=== PATIENT | female | born 2005 | race Caucasian/White ===

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

== ENCOUNTER 2024-03-15 15:42 | Emergency (ER) | payer OTHER, SELFPAY ==
--- NOTE | ~2024-03-15 | US_ITS ---
EXAMINATION: US OBSTETRICAL ULTRASOUND CLINICAL INFORMATION: Lower abdominal pain, nausea and syncope COMPARISON: Pelvic ultrasound 10/08/2023 LMP: 02/14/2024. Gestational age by maternal dates is 4 weeks 2 days. Estimated date of delivery by maternal dates was not calculated TECHNIQUE: Ultrasound of the maternal pelvis is performed using transabdominal and transvaginal transducers. Transvaginal imaging is performed due to inadequate visualization transabdominally. M-mode Doppler is also performed. FINDINGS: A tiny gestational sac is seen in the endometrial canal but no pole or yolk sac is seen. No cardiac activity detected. The endometrium is 1.9 cm thick. The right ovary measures 2.3 x 1.7 x 2.8 cm which includes a 1.4 cm corpus luteal cyst. The left ovary measures 2.3 x 2.2 x 2.1 cm. 2 adjacent cystic areas are seen in the left adnexa measuring 1.1 x 0.7 x 1.1 cm and 0.6 x 0.5 x 0.8 cm. No free pelvic fluid US/US OB pelvic and transvaginal IMPRESSION: A gestational sac is present without a pole. Correlation with beta hCG levels is recommended, as nonvisualization of a pole could be due to an early stage of . Alternatively, lack of pole may also be seen with missed or ectopic . 2 cystic areas are seen in the left adnexa which do not appear to contain a pole. Short-term sonographic follow-up and serial beta hCG levels are recommended to assess for development of a pole.
[2024-03-15 16:13] VITALS: BP 112/67; PULSE 105; RESP 14; TEMP 36.8; O2SAT 100; BMI 17.7
--- NOTE | 2024-03-15 16:13 | ED_ITS ---
HPI - General Adult General Chief complaint: Syncope Stated complaint: dizziness/vomiting/passed out History of Present Illness HPI narrative: left without completing treatment Related Data Previous Rx's ?Medication ?Instructions ?Recorded albuterol sulfate 90 mcg/actuation 2 puff inhalation Q4-6H PRN 08/26/20 aerosol inhaler shortness of breath or wheezing #8.5 grams calcium carbonate 600 mg-vitamin 1 cap PO DAILY #90 caps 10/01/22 D3 62.5 mcg (2,500 unit) capsule ibuprofen 600 mg tablet 600 mg PO Q6-8H PRN migraine 07/23/23 headache #30 tabs progesterone micronized 200 mg 200 mg PO BEDTIME 10 days #30 caps 02/06/24 capsule (Prometrium) vitamin with calcium 1 tab PO DAILY 90 days #90 tabs 03/18/24 no.72-iron 27 mg-folic acid 1 mg tablet ( Vitamins Plus Low Iron) Allergies Allergy/AdvReac Type Severity Reaction Status Date / Time No Known Allergies Allergy Verified 03/15/24 16:16 [No Known Allergies*] FOR[facility]LY [facility] Past Medical History Medical History Anemia Myalgia Anxiety Mild intermittent asthma ADHD (attention deficit hyperactivity disorder), combined type Migraines Esophagitis Surgical History No pertinent past surgical history Family History Family History Mother GERD (gastroesophageal reflux disease) HTN (hypertension) Father No problems noted. Sister Asthma Maternal Grandmother HTN (hypertension) Social History Social History Household Members: Family Housing: Apartment Alcohol intake: never Patient Tobacco Use Status: Never used Tobacco Current occupational status: employed Current occupation: [employer] Sexual orientation: Straight/Heterosexual Gender identity: Female Cognitive needs: No Hearing needs: No Vision needs: Yes (See's Eye ) Physical Exam ED Vital Signs: BMI result Body Mass Index 17.7 Course Course Course Narrative: This is an RME performed by Johnna Izaguirre CNP: Additional HPI, ROS, PE not included below will be deferred to primary provider. Patient is a 18 year old female who presents to the emergency department for evaluation. 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 reports LMP January Plan: Labs, urinalysis, urine , EKG Medical Decision Making Lab Data 03/15/24 16:45 03/15/24 16:45 Labs: Lab Results 03/15/24 Range/Units 16:45 WBC 6.0 (4.8-10.8) X10*3/uL RBC 4.42 (4.20-5.50) X10*6/uL Hgb 12.8 (12.0-16.0) g/dl Hct 39.4 (37.0-47.0) % MCV 89.1 (80.0-98.0) fL MCH 29.0 (27.0-33.0) pg MCHC 32.5 (31.0-35.0) g/dl RDW 13.3 (11.0-16.0) % Plt Count 179 (160-400) X10*3/uL MPV 12.7 H (9.4-12.3) fL Immature Gran % (Auto) 0.3 (0.0-0.4) % Neut % (Auto) 63.4 (45-73) % Lymph % (Auto) 29.6 (20-40) % [place] % (Auto) 5.7 (2-11) % Eos % (Auto) 0.7 (0-4) % Baso % (Auto) 0.3 (0-2) % Lymph # (Auto) 1.8 (1.2-4.9) X10*3/uL [place] # (Auto) 0.3 (0.1-1.2) X10*3/uL Eos # (Auto) 0.0 (0.0-0.4) X10*3/uL Baso # (Auto) 0.0 (0.0-0.2) X10*3/uL Abs Immat Gran (auto) 0.02 (0.00-0.03) X10*3/uL Absolute Neuts (auto) 3.8 (2.0-8.3) x10*3/uL Absolute Nucleated RBC 0.000 (0.0-0.012) X10*3/uL Nucleated RBC % (auto) 0.0 (0.0-0.2) /100WBC Sodium 139 (135-145) mmol/L Potassium 4.0 (3.3-5.1) mmol/L Chloride 108 (96-108) mmol/L Carbon Dioxide 20 L (22-29) mmol/L Anion Gap 15 (12-20) BUN 14 (9-16) mg/dL Creatinine 0.70 (0.5-1.4) mg/dL Estim Creat Clear Calc 107.5 Estimated GFR > 60 Random Glucose 74 (60-115) mg/dL Calcium 9.7 (8.4-10.2) mg/dL Magnesium 2.1 (1.6-2.6) mg/dL Total Bilirubin 1.2 H (0.0-1.0) mg/dL AST 24 (5-31) U/L ALT 34 H (0-31) U/L Alkaline Phosphatase 53 (39-117) U/L Troponin I High Sens < 2.7 (<3.5-17.0) ng/L Total Protein 7.8 (6.5-8.0) g/dL Albumin 4.6 (3.5-5.0) g/dL Lipase 83 H (8-78) U/L Beta HCG, Quant 89 mIU/mL Urine Color Yellow Urine Appearance Clear Urine pH 6.0 (5.0-9.0) Ur Specific [place] 1.010 (1.005-1.025) Urine Protein Negative (Neg-Trace) mg/dL Urine Glucose (UA) Negative (Negative) mg/dL Urine Ketones Negative (Negative) mg/dL Urine Blood Negative (Negative) Urine Nitrite Negative (Negative) Ur Leukocyte Esterase Negative (Negative) Discharge Plan Discharge Clinical Impression: Vasovagal syncope Patient Disposition: Left W/O Completing Treatment Prescriptions: No Action calcium carbonate-vitamin D3 600 mg-62.5 mcg (2,500 unit) capsule 1 cap PO DAILY Qty: 90 3RF ibuprofen 600 mg tablet 600 mg PO Q6-8H PRN (Reason: migraine headache) Qty: 30 0RF progesterone micronized [Prometrium] 200 mg capsule 200 mg PO BEDTIME 10 Days Qty: 30 0RF Rx Instructions: Take the pill 1 tablet a day cyclically every month from day 15-24 day 1 being the 1st day of next menstrual cycle Vitamin Plus Low Iron 27 mg iron- 1 mg tablet 1 tab PO DAILY 90 Days Qty: 90 3RF albuterol sulfate 90 mcg/actuation HFA aerosol inhaler 2 puff inhalation Q4-6H PRN (Reason: shortness of breath or wheezing) Qty: 8.5 0RF Rx Instructions: take 2 puffs 15-20 min prior to exertion Interventions: CHANCE Worksheet Last Done: 03/15/24 22:31 Discharge Date/Time: 03/15/24 22:32
--- NOTE | 2024-03-15 16:16 | ECG_ITS ---
Test Reason : SYNCOPE Blood Pressure : / mmHG Vent. Rate : 095 BPM Atrial Rate : 095 BPM P-R Int : 132 ms QRS Dur : 082 ms QT Int : 352 ms P-R-T Axes : 077 027 -15 degrees QTc Int : 442 ms Normal sinus rhythm with sinus arrhythmia Low voltage QRS Cannot rule out Anterior infarct , age undetermined T wave abnormality, consider inferior ischemia Abnormal ECG No previous ECGs available Referred By: Betsy Izaguirre Electronically Signed By:Mik Ferrari
[2024-03-15 16:51] LABS: MANUAL DIFF FLAG NO
[2024-03-15 16:54] LABS: Basophils Percent Auto 0.3 % (0-2); Eosinophils Percent Auto 0.7 % (0-4); Hematocrit 39.4 % (37.0-47.0); Hemoglobin 12.8 g/dl (12.0-16.0); Imm Gran Abs Auto 0.02 X10*3/uL (0.00-0.03); Imm Gran Pct Auto 0.3 % (0.0-0.4); Lymphocytes Absolute Auto 1.8 X10*3/uL (1.2-4.9); Lymphocytes Percent Auto 29.6 % (20-40); Mean Corpuscular HGB Conc 32.5 g/dl (31.0-35.0); Mean Corpuscular Volume 89.1 fL (80.0-98.0); Mean Platelet Volume 12.7 fL (9.4-12.3); Monocytes Absolute Auto 0.3 X10*3/uL (0.1-1.2); Monocytes Percent Auto 5.7 % (2-11); Neutrophils Absolute Auto 3.8 x10*3/uL (2.0-8.3); Neutrophils Percent Auto 63.4 % (45-73); Platelet Count 179 X10*3/uL (160-400); Red Blood Count 4.42 X10*6/uL (4.20-5.50); Red Cell Distribution Width 13.3 % (11.0-16.0)
[2024-03-15 16:58] LABS: Appearance Urine Clear; Color Urine Yellow; Glucose Urine UA Negative (Negative); Leukocyte Esterase Urine Negative (Negative); Nitrite Urine Negative (Negative); Urine Blood Negative (Negative); Urine Ketones Negative (Negative); Urine Protein Negative (Neg-Trace)
[2024-03-15 17:31] LABS: Alanine Aminotransferase 34 U/L (0-31); Albumin Level 4.6 g/dL (3.5-5.0); Alkaline Phosphatase 53 U/L (39-117); Anion Gap 15 (12-20); Aspartate Amino Transferase 24 U/L (5-31); Bilirubin Total 1.2 mg/dL (0.0-1.0); Blood Urea Nitrogen 14 mg/dL (9-16); Calcium 9.7 mg/dL (8.4-10.2); Carbon Dioxide 20 mmol/L (22-29); Chloride 108 mmol/L (96-108); Creatinine Clr Calc Pharmacy 107.5; Estimated Glomerular Filt Rate > 60; Glucose Random 74 mg/dL (60-115); Lipase 83 U/L (8-78); Magnesium 2.1 mg/dL (1.6-2.6); Sodium 139 mmol/L (135-145); Total Protein 7.8 g/dL (6.5-8.0)
[2024-03-15 17:32] LABS: HCG Quantitative 89 mIU/mL
[2024-03-15 17:33] LABS: Troponin-I High Sensitivity < 2.7 ng/L (<3.5-17.0)
[2024-03-15 20:55] VITALS: BP 108/54; PULSE 86; RESP 20; TEMP 36.6; O2SAT 100
--- NOTE | 2024-03-15 22:29 | PC.NURSE ---
Pt talked with RN about leaving as she just wants to get home, pt instructed by this RN that she needs to call OB in the morning to get repeat HCG levels drawn, pt is established with Dr. Mccann off and will call first thing tomorrow morning
== END 2024-03-15 22:32 | disposition left against medical advice (07) ==
PROVIDERS: Nurse Practitioner Family; Emergency Provider Emergency Medicine; PCP Pediatrics
DX: O26.891 Other specified pregnancy related conditions, first trimester (principal); R55 Syncope and collapse; R11.2 Nausea with vomiting, unspecified; D64.9 Anemia, unspecified; F41.9 Anxiety disorder, unspecified; Z3A.01 Less than 8 weeks gestation of pregnancy; Z53.21 Procedure and treatment not carried out due to patient leaving prior to being seen by health care provider
CPT/HCPCS: 36415; 76801; 76817; 80053; 81003; 83690; 83735; 84484; 84702; 85025; 93005; 99283; 99284

== ENCOUNTER → 2024-03-15 16:16 | Outpatient (BNV) | payer OTHER, SELFPAY | PROVIDERS: Emergency Provider Emergency Medicine; PCP Pediatrics; Visit Provider Internal Medicine Cardiovascular Disease | DX: I49.9 Cardiac arrhythmia, unspecified (principal) | CPT/HCPCS: 93010 ==